=== PATIENT | male | born 1930 | race Caucasian/White ===

== ENCOUNTER 2018-02-02 15:54 | Emergency (ER) | payer OTHER ==
--- NOTE | 2018-02-02 16:46 | EDPHYS ---
Physician Documentation [facility] Name: Petar Dale Jr Age: 87 yrs Sex: Male : 1930 Arrival Date: 02/02/2018 Time: 15:56 Bed 13 Private MD: ED Physician Edmundo Donaldson HPI: 02/02 16:42 This 87 yrs old Male presents to ER via Ambulatory with complaints of Back jr8 Pain. 16:42 The patient presents with pain that is acute. The symptoms are located in the right mid jr8 back. Onset: The symptoms/episode began/occurred acutely, today. The pain does not radiate. Associated signs and symptoms: The patient has no apparent associated signs or symptoms. The problem was sustained from unknown cause. Modifying factors: The patient symptoms are alleviated by nothing, the patient symptoms are aggravated by movement, walking. Severity of symptoms: At their worst the symptoms were moderate, in the emergency department the symptoms are unchanged. The patient has not experienced similar symptoms in the past. The patient has not recently seen a physician. Historical: - Allergies: 16:00 PENICILLINS; hj - Home Meds: 16:00 amlodipine oral [Active]; Metoprolol Tartrate Oral [Active]; valsartan Oral [Active]; hj - PMHx: 16:00 High Cholesterol; Hypertension; hj - PSHx: 16:00 Joint replacement; hj - Immunization history:: Adult Immunizations up to date. - Social history:: Smoking status: Patient/guardian denies using tobacco. ROS: 16:42 Eyes: Negative for injury, pain, redness, and discharge, ENT: Negative for injury, jr8 pain, and discharge, Neck: Negative for injury, pain, and swelling, Cardiovascular: Negative for chest pain, palpitations, and edema, Respiratory: Negative for shortness of breath, cough, wheezing, and pleuritic chest pain, Abdomen/GI: Negative for abdominal pain, nausea, vomiting, diarrhea, and constipation, MS/Extremity: Negative for injury and deformity, Skin: Negative for injury, rash, and discoloration, Neuro: Negative for headache, weakness, numbness, tingling, and seizure. 16:42 Back: Positive for pain with movement, of the right mid back, Negative for decreased range of motion, pain at rest. Exam: 16:42 Chest/axilla: Normal chest wall appearance and motion. Nontender with no deformity. jr8 No lesions are appreciated. Cardiovascular: Regular rate and rhythm with a normal S1 and S2. No gallops, murmurs, or rubs. Normal PMI, no JVD. No pulse deficits. Respiratory: Lungs have equal breath sounds bilaterally, clear to auscultation and percussion. No rales, rhonchi or wheezes noted. No increased work of breathing, no retractions or nasal flaring. Abdomen/GI: Soft, non-tender, with normal bowel sounds. No distension or tympany. No guarding or rebound. No evidence of tenderness throughout. Skin: Warm, dry with normal turgor. Normal color with no rashes, no lesions, and no evidence of cellulitis. MS/ Extremity: Pulses equal, no cyanosis. Neurovascular intact. Full, normal range of motion. Neuro: Awake and alert, GCS 15, oriented to person, place, time, and situation. Cranial nerves II-XII grossly intact. Motor strength 5/5 in all extremities. Sensory grossly intact. Cerebellar exam normal. Normal gait. 16:42 Back: pain, that is moderate, of the right mid back over two of his lower posterior/lateral ribs , ROM is normal, normal spinal alignment noted, CVA tenderness, is absent, vertebral tenderness, is not appreciated, muscle spasm, is not present. Vital Signs: 16:00 BP 158 / 71; Pulse 58; Resp 18; Temp 98.0(TE); Pulse Ox 97% on R/A; Weight 88 kg; hj Height 5 ft. 10 in. (177.80 cm); Pain 5/10; 16:00 Body Mass Index 27.84 (88.00 kg, 177.80 cm) MDM: 16:05 Patient medically screened. jr8 16:42 Data reviewed: vital signs, nurses notes, radiologic studies, plain films, and as a jr8 result, I will discharge patient. Data interpreted: Pulse oximetry: on room air is 97 %. Interpretation: normal. Counseling: I had a detailed discussion with the patient and/or guardian regarding: the historical points, exam findings, and any diagnostic results supporting the discharge/admit diagnosis, the need for outpatient follow up, a family practitioner, to return to the emergency department if symptoms worsen or persist or if there are any questions or concerns that arise at home. 02/02 16:12 Order name: TUYET Healy RIGHT jr8 Administered Medications: No medications were administered Disposition: 18:50 Co-signature as Attending Physician, Edmundo Donaldson MD I agree with the assessment and kdr plan of care. Disposition: 02/02/18 16:45 Discharged to Home. Impression: Rib Contusion . - Condition is Stable. - Discharge Instructions: Rib Contusion. - Prescriptions for Tramadol 50 mg Oral Tablet - take 1 tablet by ORAL route every 8 hours as needed; 12 tablet. - Medication Reconciliation Form, Thank You Letter, Antibiotic Education, Prescription Opioid Use form. - Follow up: Private Physician; When: 2 - 3 days; Reason: Recheck today's complaints, Continuance of care, Re-evaluation by your physician. - Problem is new. - Symptoms have improved. Signatures: Dispatcher [employer] EDMS Edmundo Donaldson MD MD kdr Roszak, Josh, PA PA jr8 Dao Savage RN RN la1 Tony Ryan RN RN hj
--- NOTE | 2018-02-02 16:46 | ER ---
Nurse's Notes [facility] Name: Petar Dale Jr Age: 87 yrs Sex: Male : 1930 Arrival Date: 02/02/2018 Time: 15:56 Bed 13 Private MD: Diagnosis: Rib Contusion Presentation: 02/02 15:57 Presenting complaint: Patient states: i started having R upper back pain a week ago; hj denies fever and chills; denies nausea and vomiting; per pt, PCP been watching renal problems, had Renal US few days ago;. Transition of care: patient was not received from another setting of care. Onset of symptoms was February 02, 2018. Care prior to arrival: None. 15:57 Method Of Arrival: Ambulatory 15:57 Acuity: SPRING 3 hj Triage Assessment: 16:00 General: Appears in no apparent distress. uncomfortable, Behavior is calm, cooperative, hj appropriate for age. Pain: Complains of pain in right mid back. Musculoskeletal: Capillary refill < 3 seconds. Historical: - Allergies: 16:00 PENICILLINS; hj - Home Meds: 16:00 amlodipine oral [Active]; Metoprolol Tartrate Oral [Active]; valsartan Oral [Active]; hj - PMHx: 16:00 High Cholesterol; Hypertension; hj - PSHx: 16:00 Joint replacement; hj - Immunization history:: Adult Immunizations up to date. - Social history:: Smoking status: Patient/guardian denies using tobacco. Screenin:43 Abuse screen: Denies threats or abuse. Nutritional screening: No deficits noted. la1 Tuberculosis screening: No symptoms or risk factors identified. Tuberculosis screening: No symptoms or risk factors identified. Fall Risk Fall in past 12 months (25 points). No secondary diagnosis (0 pts). No IV (0 pts). Ambulatory Aid- Crutches/Cane/Walker (15 pts). Gait- Weak (10 pts.). Mental Status- Oriented to own ability (0 pts). Total Manning Fall Scale indicates High Risk Score (45 or more points). Family Present and informed to notify staff if the need to leave the bedside. Assessment: 16:42 Reassessment: Patient is alert, oriented x 3, equal unlabored respirations, skin la1 warm/dry/pink. General: Appears in no apparent distress. Behavior is calm, cooperative. Pain: Complains of pain in right mid back. Neuro: Level of Consciousness is awake, alert, obeys commands, Oriented to person, place, time, situation. Cardiovascular: Capillary refill < 3 seconds Patient's skin is warm and dry. Respiratory: Airway is patent Respiratory effort is even, unlabored, Respiratory pattern is regular, symmetrical. GI: No signs and/or symptoms were reported involving the gastrointestinal system. : No signs and/or symptoms were reported regarding the genitourinary system. Vital Signs: 16:00 BP 158 / 71; Pulse 58; Resp 18; Temp 98.0(TE); Pulse Ox 97% on R/A; Weight 88 kg; hj Height 5 ft. 10 in. (177.80 cm); Pain 5/10; 16:00 Body Mass Index 27.84 (88.00 kg, 177.80 cm) ED Course: 15:56 Patient arrived in ED. hj 15:59 Triage completed. hj 16:00 Arm band placed on right wrist. 16:03 Robert Crisostomo PA is PHCP. jr8 16:03 Edmundo Donaldson MD is Attending Physician. jr8 16:30 Patient moved to radiology via wheelchair. ap2 16:30 X-ray completed. Patient tolerated procedure well. ap2 16:36 XRAY Ribs RIGHT In Process Unspecified. EDMS 16:42 Dao Savage, RN is Primary Nurse. la1 16:43 Call light in reach. la1 16:51 No provider procedures requiring assistance completed. Patient did not have IV access la1 during this emergency room visit. Administered Medications: No medications were administered Outcome: 16:45 Discharge ordered by . jr8 16:51 Discharged to home ambulatory. la1 16:51 Condition: stable 16:51 Discharge instructions given to patient, Instructed on discharge instructions, follow up and referral plans. medication usage, Demonstrated understanding of instructions, follow-up care, medications, Prescriptions given X 1. 16:52 Patient left the ED. la1 Signatures: Dispatcher [employer] EDPA Robert Crisostomo PA PA jr8 Attema, Lee, RN RN laTony Rodríguez RN RN Britt Gonzalez ap2 Corrections: (The following items were deleted from the chart) 16:03 16:00 Pulse 58bpm; Resp 18bpm; Pulse Ox 97% RA; Temp 98.0F Temporal; 88 kg; Height 5 hj ft. 10 in.; BMI: 27.8; Pain 5/10; hj
[2018-02-02 16:56] VITALS: BP 158/71; TEMP 98; O2SAT 97
--- NOTE | 2018-02-02 17:54 | RAD REPORT ---
EXAM DESCRIPTION: Ribs Right - 02/02/2018 4:37 pm CLINICAL HISTORY: Right-sided chest and rib pain COMPARISON: November 13, 2017 FINDINGS: Bones are osteopenic. No displaced rib fractures present. No nondisplaced rib fracture mary pected. No aggressive rib lesion. No underlying pneumothorax, effusion, infiltrate or pulmonary contusion. Fi brotic lung changes are present. IMPRESSION: No rib fracture or aggressive rib lesion identifiable.
== END 2018-02-02 16:52 | disposition home or self-care (01) ==
LOC: ER 15:54
DX: S20.219A Contusion of unspecified front wall of thorax, initial encounter (principal); I10 Essential (primary) hypertension; E78.00 Pure hypercholesterolemia, unspecified; Z88.0 Allergy status to penicillin
CPT/HCPCS: 99283